=== PATIENT | male | born 2000 | race Two or more races ===

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

== ENCOUNTER 2019-07-12 06:39 | Emergency (ER) | payer OTHER ==
[~2019-07-12] VITALS: Ht 170.2 cm; Wt 81.6 kg
[2019-07-12 06:46] VITALS: BP 149/91
[2019-07-12] MEDS ORDERED: EPINEPHrine HCL 1 MG/1 ML AMP SC ONE (07:45)
[2019-07-12] MEDS ORDERED: diphenhdrAMINE HCL 50 MG/1 ML VL IM ONE (07:45)
== END 2019-07-12 08:20 | disposition home or self-care (01) ==
LOC: ER 06:42
DX: T78.40XA Allergy, unspecified, initial encounter (principal); X58.XXXA Exposure to other specified factors, initial encounter
CPT/HCPCS: 96372; 99283; J0171; J1200

== ENCOUNTER 2019-11-02 18:40 | Emergency (ER) | payer OTHER ==
[~2019-11-02] VITALS: Ht 170.2 cm; Wt 85.7 kg
[2019-11-02] MEDS ORDERED: diphenhdrAMINE HCL 50 MG/1 ML VL ONE (18:50)
[2019-11-02] MEDS ORDERED: diphenhdrAMINE HCL 50 MG/1 ML VL IM ONE (19:00)
[2019-11-02 20:27] VITALS: BP 139/86
== END 2019-11-02 22:04 | disposition home or self-care (01) ==
LOC: ER 18:41
DX: S50.361A Insect bite (nonvenomous) of right elbow, initial encounter (principal); W57.XXXA Bitten or stung by nonvenomous insect and other nonvenomous arthropods, initial encounter; Y93.89 Activity, other specified; Y92.89 Other specified places as the place of occurrence of the external cause; Y99.8 Other external cause status
CPT/HCPCS: 96372; 99283; J1200

== ENCOUNTER 2020-08-09 10:24 | Emergency (ER) | payer OTHER ==
[~2020-08-09] VITALS: Ht 170.2 cm; Wt 86.2 kg
[2020-08-09 14:14] VITALS: BP 118/70
[2020-08-09] MEDS ORDERED: IBUPROFEN 800 MG TAB PO ONE (14:15)
== END 2020-08-09 14:28 | disposition home or self-care (01) ==
LOC: ER 10:24
DX: S06.9X9A Unspecified intracranial injury with loss of consciousness of unspecified duration, initial encounter (principal); S16.1XXA Strain of muscle, fascia and tendon at neck level, initial encounter; V43.52XA Car driver injured in collision with other type car in traffic accident, initial encounter; Y93.89 Activity, other specified; Y92.488 Other paved roadways as the place of occurrence of the external cause; Y99.8 Other external cause status
CPT/HCPCS: 70450; 72040

== ENCOUNTER 2020-08-14 17:40 | Emergency (ER) | payer OTHER ==
[~2020-08-14] VITALS: Ht 172.7 cm; Wt 86.2 kg
[2020-08-14 17:53] VITALS: BP 136/82
== END 2020-08-14 19:00 | disposition home or self-care (01) ==
LOC: ER 17:40
DX: S86.911A Strain of unspecified muscle(s) and tendon(s) at lower leg level, right leg, initial encounter (principal); V43.52XA Car driver injured in collision with other type car in traffic accident, initial encounter; Y93.89 Activity, other specified; Y92.488 Other paved roadways as the place of occurrence of the external cause; Y99.8 Other external cause status
CPT/HCPCS: 73562

== ENCOUNTER → 2022-09-27 08:41 | Emergency (ER) | payer OTHER ==
[~2022-09-27] VITALS: Ht 172.7 cm; Wt 95.7 kg
[~2022-09-27 08:41] MED LIST: KETOROLAC TROMETH 60MG/2ML VIAL IM ONE
[2022-09-27 13:19] VITALS: BP 125/75
== END | disposition home or self-care (01) ==
LOC: ER 08:41
DX: M54.2 Cervicalgia (principal); R51.9 Headache, unspecified; M79.18 Myalgia, other site; V43.52XA Car driver injured in collision with other type car in traffic accident, initial encounter; Y93.89 Activity, other specified; Y92.89 Other specified places as the place of occurrence of the external cause; Y99.8 Other external cause status
CPT/HCPCS: 71045; 72040; 73060; 73080; 73090; 73130; 96372; 99284; J1885